=== PATIENT | female | born 1950 | race Two or more races ===

== ENCOUNTER 2019-04-18 10:38 | Outpatient (CLI) | payer OTHER | END 2019-04-18 10:46 | disposition home or self-care (01) | LOC: SONOGRAMA 10:38 | DX: E04.1 Nontoxic single thyroid nodule (principal) ==

== ENCOUNTER 2019-12-02 10:24 | Outpatient (CLI) | payer OTHER | END 2019-12-02 10:25 | disposition home or self-care (01) | LOC: SONOGRAMA 10:24 | PROVIDERS: ATTEND Pathology Anatomic Pathology & Clinical Pathology | DX: E04.2 Nontoxic multinodular goiter (principal) ==